=== PATIENT | male | born 1985 | race American Indian/Alaskan Native ===

== ENCOUNTER 2017-07-03 16:25 | Inpatient (IN) | payer MEDICAID, OTHER ==
[2017-07-03] MEDS ORDERED: Acetaminophen 325 MG Tab PO PRN (19:18)
[2017-07-03] MEDS ORDERED: Ondansetron 4 MG Tab.DIS PO PRN (19:18)
[2017-07-03] MEDS ORDERED: Ibuprofen 400 MG Tab PO PRN (19:18)
[2017-07-03] MEDS ORDERED: Zolpidem 5 MG Tab PO PRN (19:18)
--- NOTE | 2017-07-03 19:26 | PCM.HP ---
H&P History of Present Illness - General Date of Service: 07/03/17 Admit Problem/Dx: Admission Diagnosis/Problem Admission Diagnosis/Problem Cellulitis Source of Information: Patient - History of Present Illness Initial Comments - Free Text/Narative: 32-year-old generally healthy gentleman. Developed a small scab on the right knee area after falling about 2 weeks ago. 2 days prior to admission patient developed redness that was enlarging. Was not associated fever or chills but was moderately tender. [facility] clinic where he was diagnosed with cellulitis and was recommended for hospital admission for IV antibiotics. - Related Data Allergies/Adverse Reactions: Allergies Allergy/AdvReac Type Severity Reaction Status Date / Time No Known Allergies Allergy Verified 07/03/17 19:14 Home Medications: Home Meds . [No Known Home Meds] 07/03/17 [History] Past Medical History - Past Health History Medical/Surgical History: Denies Medical/Surgical History Social & Family History - Tobacco Use Smoking Status *Q: Current Every Day Smoker Years of Tobacco use: 11 - Alcohol Use Days Per Week of Alcohol Use: 7 Number of Drinks Per Day: 4 Total Drinks Per Week: 28 - Recreational Drug Use Recreational Drug Use: No H&P Review of Systems - Review of Systems: Review Of Systems: See Below General: Denies: Fever Pulmonary: Denies: Shortness of Breath Cardiovascular: Denies: Chest Pain Gastrointestinal: Denies: Abdominal Pain Genitourinary: Denies: Dysuria Skin: Reports: Erythema (Right lower extremity) Psychiatric: Denies: Confusion Exam - Exam Exam: See Below - Vital Signs Vital Signs: Last Vital Signs Temp 36.9 C 07/03/17 18:40 Pulse 97 07/03/17 18:40 Resp 18 07/03/17 18:40 BP 136/82 07/03/17 18:40 Pulse Ox 97 07/03/17 18:40 - Exam General: Alert, Oriented Neck: Supple Lungs: Clear to Auscultation, Normal Respiratory Effort Cardiovascular: Regular Rate, Regular Rhythm GI/Abdominal Exam: Normal Bowel Sounds, Soft, Non-Tender Skin: Warm, Other (Right lower extremity with erythema, small scabbed wound anterior to the knee) Neuro Extensive - Mental Status: Alert, Oriented x3 Psychiatric: Alert, Normal Affect, Normal Mood *Q Meaningful Use (ADM) - VTE *Q VTE Criteria *Q: - Stroke *Q Stroke Criteria *Q: - AMI *Q AMI Criteria *Q: - Problem List (1) Cellulitis of right foot SNOMED Code(s): 766626473 ICD Code: L03.115 - CELLULITIS OF RIGHT LOWER LIMB Status: Acute Current Visit: Yes Problem List Initiated/Reviewed/Updated: Yes Orders Last 24hrs: Active Orders 24 hr Category Date Time Status Patient Status [ADT] Routine ADT 07/03/17 19:18 Ordered Antiembolic Devices [RC] PER UNIT ROUTINE Care 07/03/17 19:19 Ordered Oxygen Therapy [RC] PRN Care 07/03/17 19:18 Ordered Peripheral IV Care [RC] . DIRECTED Care 07/03/17 19:19 Ordered Up With Assistance [RC] ASDIRECTED Care 07/03/17 19:18 Ordered VTE/DVT Education [RC] PER UNIT ROUTINE Care 07/03/17 19:18 Ordered Vital Signs [RC] Q4H Care 07/03/17 19:18 Ordered Regular Diet [DIET] Diet 07/03/17 Breakfast Ordered BASIC METABOLIC PANEL,BMP [CHEM] AM Lab 07/04/17 05:15 Ordered BASIC METABOLIC PANEL,BMP [CHEM] Routine Lab 07/03/17 19:11 Ordered CBC WITH AUTO DIFF [HEME] AM Lab 07/04/17 05:15 Ordered CBC WITH AUTO DIFF [HEME] Routine Lab 07/03/17 19:11 Ordered CULTURE BLOOD [BC] Stat Lab 07/03/17 19:12 Ordered CULTURE BLOOD [BC] Stat Lab 07/03/17 19:12 Ordered Acetaminophen [Tylenol] Med 07/03/17 19:18 Ordered 650 mg PO Q4H PRN Heparin Sodium Med 07/03/17 22:00 Ordered 5,000 units SUBCUT Q8HR Ibuprofen [Motrin] Med 07/03/17 19:18 Ordered 400 mg PO Q6H PRN Ibuprofen [Motrin] Med 07/03/17 19:18 Ordered 600 mg PO Q6H PRN Ondansetron [Zofran ODT] Med 07/03/17 19:18 Ordered 4 mg PO Q6H PRN Piperacillin/Tazobactam [Zosyn] 3.375 gm Med 07/03/17 19:30 Ordered Sodium Chloride 0.9% [Normal Saline] 100 ml IV Q6H Sodium Chloride 0.9% [Saline Flush] Med 07/03/17 19:18 Ordered 10 ml FLUSH ASDIRECTED PRN Vancomycin Pharmacy to Dose [Pharmacy to Dose - Med 07/03/17 19:30 Ordered Vancomycin] 1 dose .XX ASDIRECTED Zolpidem [Ambien] Med 07/03/17 19:18 Ordered 5 mg PO BEDTIME PRN Antiembolic Hose [OM.PC] Per Unit Routine Oth 07/03/17 19:19 Ordered Blood Culture x2 Reflex Set [OM.PC] Stat Oth 07/03/17 19:12 Ordered Peripheral IV Insertion Adult [OM.PC] Routine Oth 07/03/17 19:18 Ordered Resuscitation Status Routine Resus Stat 07/03/17 19:18 Ordered Medication Orders Piperacillin Sod/Tazobactam (Sod 3.375 gm/ Sodium Chloride) 100 mls @ 200 mls/ hr IV Q6H [facility] Vancomycin HCl (Pharmacy To Dose - Vancomycin) 1 dose .XX ASDIRECTED [facility] Assessment/Plan Comment:: #1 right foot cellulitis Will obtain blood culture Obtain CBC and basic metabolic panel Start empirically to treat with Zosyn and vancomycin The patient is from an area where MRSA is endemic #2 DVT prophylaxis will be subcutaneous heparin
[2017-07-03] MEDS: Piperacillin/Tazobactam 3.375 GM in Sodium Chloride 0.9% 100 ML IV SCH (20:22)
[2017-07-03 20:29] LABS: CHLORIDE,CL 101 mmol/L (101-111); SODIUM,NA 135 mmol/L (135-145)
[2017-07-03] MEDS ORDERED: Nicotine 7 MG/24 Hr Patch TRDERM SCH (21:00)
[2017-07-03] MEDS: Heparin Sodium 5,000 Units/ML Vial SUBCUT SCH (22:09)
[2017-07-04] MEDS: Piperacillin/Tazobactam 3.375 GM in Sodium Chloride 0.9% 100 ML IV SCH ×4 (01:56→20:20)
[2017-07-04] MEDS: Heparin Sodium 5,000 Units/ML Vial SUBCUT SCH ×3 (05:51→22:13)
[2017-07-04 06:56] LABS: CHLORIDE,CL 102 mmol/L (101-111); SODIUM,NA 136 mmol/L (135-145)
[2017-07-04] MEDS: Ibuprofen 600 MG Tab PO PRN ×2 (09:45→22:12)
--- NOTE | 2017-07-04 10:51 | PCM.PN ---
- General Info Date of Service: 07/04/17 Admission Dx/Problem (Free Text): Admission Diagnosis/Problem Admission Diagnosis/Problem Cellulitis Subjective Update: Feeling well. No fever or chills during the night. The redness did expand somewhat. No shortness of breath, chest pain Functional Status: Reports: Pain Controlled - Review of Systems General: Denies: Fever Pulmonary: Denies: Shortness of Breath Cardiovascular: Denies: Chest Pain Gastrointestinal: Denies: Abdominal Pain, Diarrhea - Patient Data Vitals - Most Recent: Last Vital Signs Temp 37.3 C 07/04/17 07:00 Pulse 84 07/04/17 07:00 Resp 18 07/04/17 07:00 BP 105/64 07/04/17 07:00 Pulse Ox 97 07/04/17 07:00 Weight - Most Recent: 88.904 kg I&O - Last 24 Hours: Intake & Output 07/03/17 07/04/17 07/04/17 22:59 06:59 14:59 Intake Total 1156 360 Balance 1156 360 Lab Results Last 24 Hours: Laboratory Results - last 24 hr 07/03/17 07/03/17 07/04/17 Range/Units 19:45 19:45 06:05 WBC 12.0 H 9.2 (5.0-10.0) 10^3/uL RBC 4.79 4.48 L (4.6-6.2) 10^6/uL Hgb 14.8 13.8 L (14.0-18.0) g/dL Hct 42.5 40.3 (40.0-54.0) % MCV 88.7 90.0 (80-100) fL MCH 30.9 30.8 (27.0-34.0) pg MCHC 34.8 34.2 (33.0-35.0) g/dL Plt Count 260 237 (150-450) 10^3/uL Neut % (Auto) 75.1 73.1 (42.2-75.2) % Lymph % (Auto) 12.7 L 12.1 L (20.5-50.1) % [place] % (Auto) 8.5 H 9.6 H (2-8) % Eos % (Auto) 3.6 H 5.0 H (1.0-3.0) % Baso % (Auto) 0.1 0.2 (0.0-1.0) % Sodium 135 (135-145) mmol/L Potassium 4.2 (3.6-5.0) mmol/L Chloride 101 (101-111) mmol/L Carbon Dioxide 25.0 (21.0-31.0) mmol/L Anion Gap 13.2 BUN 8 (7-18) mg/dL Creatinine 0.7 (0.6-1.3) mg/dL Est Cr Clr Drug Dosing TNP Estimated GFR (MDRD) > 60 Glucose 89 (74-105) mg/dL Calcium 9.1 (8.4-10.2) mg/dl 07/04/17 Range/Units 06:05 WBC (5.0-10.0) 10^3/uL RBC (4.6-6.2) 10^6/uL Hgb (14.0-18.0) g/dL Hct (40.0-54.0) % MCV (80-100) fL MCH (27.0-34.0) pg MCHC (33.0-35.0) g/dL Plt Count (150-450) 10^3/uL Neut % (Auto) (42.2-75.2) % Lymph % (Auto) (20.5-50.1) % [place] % (Auto) (2-8) % Eos % (Auto) (1.0-3.0) % Baso % (Auto) (0.0-1.0) % Sodium 136 (135-145) mmol/L Potassium 4.0 (3.6-5.0) mmol/L Chloride 102 (101-111) mmol/L Carbon Dioxide 25.0 (21.0-31.0) mmol/L Anion Gap 13.0 BUN 8 (7-18) mg/dL Creatinine 0.8 (0.6-1.3) mg/dL Est Cr Clr Drug Dosing 128.25 Estimated GFR (MDRD) > 60 Glucose 92 (74-105) mg/dL Calcium 8.8 (8.4-10.2) mg/dl Med Orders - Current: Current Medications Acetaminophen (Tylenol) 650 mg PO Q4H PRN PRN Reason: Pain (Mild 1-3)/fever Heparin Sodium (Porcine) (Heparin Sodium) 5,000 units SUBCUT Q8HR [facility] Last Admin: 07/04/17 05:51 Dose: 5,000 units Vancomycin HCl 1.25 gm/ Sodium (Chloride) 250 mls @ 166.667 mls/hr IV Q8H [facility] Last Admin: 07/04/17 05:51 Dose: 166.667 mls/hr Piperacillin Sod/Tazobactam (Sod 3.375 gm/ Sodium Chloride) 100 mls @ 200 mls/ hr IV Q6H [facility] Last Admin: 07/04/17 08:44 Dose: 200 mls/hr Ibuprofen (Motrin) 600 mg PO Q6H PRN PRN Reason: Pain (severe 7-10) Last Admin: 07/04/17 09:45 Dose: 600 mg Ibuprofen (Motrin) 400 mg PO Q6H PRN PRN Reason: Pain (moderate 4-6) Miscellaneous Information (Remove Patch) 1 ea TRDERM BEDTIME [facility] Nicotine (Habitrol) 7 mg TRDERM BEDTIME [facility] Ondansetron HCl (Zofran Odt) 4 mg PO Q6H PRN PRN Reason: nausea, able to take PO Sodium Chloride (Saline Flush) 10 ml FLUSH ASDIRECTED PRN PRN Reason: Keep Vein Open Vancomycin HCl (Pharmacy To Dose - Vancomycin) 1 dose .XX ASDIRECTED [facility] Zolpidem Tartrate (Ambien) 5 mg PO BEDTIME PRN PRN Reason: Sleep Discontinued Medications Piperacillin Sod/Tazobactam (Sod 3.375 gm/ Sodium Chloride) 100 mls @ 200 mls/ hr IV Q6H [facility] Last Admin: 07/04/17 01:56 Dose: 200 mls/hr Miscellaneous Information (Remove Patch) 1 ea TRDERM DAILY [facility] Nicotine (Habitrol) 7 mg TRDERM DAILY [facility] Last Admin: 07/03/17 22:07 Dose: 7 mg - Exam General: Alert, Oriented Neck: Supple Lungs: Clear to Auscultation, Normal Respiratory Effort Cardiovascular: Regular Rate, Regular Rhythm Extremities: No Pedal Edema Skin: Other (Right lower extremity erythema has increased from the prior borders , no palpable abscess) - Problem List & Annotations (1) Cellulitis of right foot SNOMED Code(s): 220020361 Code(s): L03.115 - CELLULITIS OF RIGHT LOWER LIMB Status: Acute Current Visit: Yes - Problem List Review Problem List Initiated/Reviewed/Updated: Yes - My Orders Last 24 Hours: My Active Orders 07/03/17 19:12 Blood Culture x2 Reflex Set [OM.PC] Stat 07/03/17 19:18 Patient Status [ADT] Routine Oxygen Therapy [RC] .PRN Up With Assistance [RC] ASDIRECTED VTE/DVT Education [RC] PER UNIT ROUTINE Vital Signs [RC] 03,07,11,15,19,23 Acetaminophen [Tylenol] 650 mg PO Q4H PRN Ibuprofen [Motrin] 400 mg PO Q6H PRN Ibuprofen [Motrin] 600 mg PO Q6H PRN Ondansetron [Zofran ODT] 4 mg PO Q6H PRN Sodium Chloride 0.9% [Saline Flush] 10 ml FLUSH ASDIRECTED PRN Zolpidem [Ambien] 5 mg PO BEDTIME PRN Peripheral IV Insertion Adult [OM.PC] Routine Resuscitation Status Routine 07/03/17 19:19 Antiembolic Devices [RC] 08,20 Peripheral IV Care [RC] 08,20 Antiembolic Hose [OM.PC] Per Unit Routine 07/03/17 19:30 Vancomycin Pharmacy to Dose [Pharmacy to Dose - Vancomycin] 1 dose .XX ASDIRECTED 07/03/17 19:40 CULTURE BLOOD [BC] Stat 07/03/17 19:45 CULTURE BLOOD [BC] Stat 07/03/17 21:00 Vancomycin 1.25 gm Sodium Chloride 0.9% [Normal Saline] 250 ml IV Q8H 07/03/17 22:00 Heparin Sodium 5,000 units SUBCUT Q8HR 07/04/17 08:00 Piperacillin/Tazobactam [Zosyn] 3.375 gm Sodium Chloride 0.9% [Normal Saline] 100 ml IV Q6H 07/04/17 21:00 Nicotine [Habitrol] 7 mg TRDERM BEDTIME Remove Patch 1 ea TRDERM BEDTIME 07/05/17 05:15 BASIC METABOLIC PANEL,BMP [CHEM] AM CBC WITH AUTO DIFF [HEME] AM - Plan Plan:: #1 right foot cellulitis Size of the redness has increased somewhat but the right blood cell count is down. blood culture is pending empirically treat with Zosyn and vancomycin The patient is from an area where MRSA is endemic #2 DVT prophylaxis will be subcutaneous heparin
[2017-07-04] MEDS: Sodium Chloride 0.9% 10 ML Syringe FLUSH PRN ×4 (13:32→22:54)
[2017-07-04] MEDS ORDERED: Nicotine 7 MG/24 Hr Patch TRDERM SCH (21:00)
[2017-07-05] MEDS: Piperacillin/Tazobactam 3.375 GM in Sodium Chloride 0.9% 100 ML IV SCH ×4 (01:50→20:24)
[2017-07-05] MEDS: Sodium Chloride 0.9% 10 ML Syringe FLUSH PRN ×5 (01:51→12:21)
[2017-07-05 05:22] LABS: CHLORIDE,CL 105 mmol/L (101-111); SODIUM,NA 136 mmol/L (135-145)
[2017-07-05] MEDS: Heparin Sodium 5,000 Units/ML Vial SUBCUT SCH ×3 (05:45→22:39)
[2017-07-05] MEDS: Nicotine 14 MG/24 Hr Patch TRDERM SCH (10:52)
--- NOTE | 2017-07-05 11:13 | PCM.PN ---
- General Info Date of Service: 07/05/17 Admission Dx/Problem (Free Text): Admission Diagnosis/Problem Admission Diagnosis/Problem Cellulitis Subjective Update: Feeling well. No fever or chills during the night. The redness improved. There is still moderate associated swelling. No shortness of breath, chest pain - Review of Systems General: Denies: Fever Pulmonary: Denies: Shortness of Breath Cardiovascular: Denies: Chest Pain Gastrointestinal: Reports: Diarrhea. Denies: Abdominal Pain Genitourinary: Denies: Dysuria - Patient Data Vitals - Most Recent: Last Vital Signs Temp 36.8 C 07/05/17 07:00 Pulse 71 07/05/17 07:00 Resp 18 07/05/17 07:00 BP 87/39 L 07/05/17 07:00 Pulse Ox 98 07/05/17 07:00 Weight - Most Recent: 88.904 kg I&O - Last 24 Hours: Intake & Output 07/04/17 07/05/17 07/05/17 22:59 06:59 14:59 Intake Total 1540 457 365 Balance 1540 457 365 Lab Results Last 24 Hours: Laboratory Results - last 24 hr 07/05/17 07/05/17 07/05/17 Range/Units 04:25 04:25 04:25 WBC 6.9 (5.0-10.0) 10^3/uL RBC 4.24 L (4.6-6.2) 10^6/uL Hgb 13.2 L (14.0-18.0) g/dL Hct 38.3 L (40.0-54.0) % MCV 90.3 (80-100) fL MCH 31.1 (27.0-34.0) pg MCHC 34.5 (33.0-35.0) g/dL Plt Count 227 (150-450) 10^3/uL Neut % (Auto) 57.8 (42.2-75.2) % Lymph % (Auto) 18.9 L (20.5-50.1) % [place] % (Auto) 14.3 H (2-8) % Eos % (Auto) 8.4 H (1.0-3.0) % Baso % (Auto) 0.6 (0.0-1.0) % Sodium 136 (135-145) mmol/L Potassium 4.0 (3.6-5.0) mmol/L Chloride 105 (101-111) mmol/L Carbon Dioxide 23.0 (21.0-31.0) mmol/L Anion Gap 12.0 BUN 12 (7-18) mg/dL Creatinine 0.8 (0.6-1.3) mg/dL Est Cr Clr Drug Dosing 128.25 mL/min Estimated GFR (MDRD) > 60 Glucose 96 (74-105) mg/dL Calcium 8.5 (8.4-10.2) mg/dl Vancomycin Trough 21.9 H (10-15) ug/ml Jose Results Last 24 Hours: Microbiology 07/03/17 19:45 Aerobic Blood Culture - Preliminary Blood - Venous - Lab Draw NO GROWTH AFTER 1 DAY Anaerobic Blood Culture - Preliminary NO GROWTH AFTER 1 DAY 07/03/17 19:40 Aerobic Blood Culture - Preliminary Blood - Venous NO GROWTH AFTER 1 DAY Anaerobic Blood Culture - Preliminary NO GROWTH AFTER 1 DAY Med Orders - Current: Current Medications Acetaminophen (Tylenol) 650 mg PO Q4H PRN PRN Reason: Pain (Mild 1-3)/fever Heparin Sodium (Porcine) (Heparin Sodium) 5,000 units SUBCUT Q8HR [facility] Last Admin: 07/05/17 05:45 Dose: 5,000 units Piperacillin Sod/Tazobactam (Sod 3.375 gm/ Sodium Chloride) 100 mls @ 200 mls/ hr IV Q6H [facility] Last Infusion: 07/05/17 11:01 Dose: Infused Vancomycin HCl 1 gm/ Sodium (Chloride) 250 mls @ 166.667 mls/hr IV Q8H [facility] Last Admin: 07/05/17 05:41 Dose: 166.667 mls/hr Ibuprofen (Motrin) 600 mg PO Q6H PRN PRN Reason: Pain (severe 7-10) Last Admin: 07/04/17 22:12 Dose: 600 mg Ibuprofen (Motrin) 400 mg PO Q6H PRN PRN Reason: Pain (moderate 4-6) Miscellaneous Information (Remove Patch) 1 ea TRDERM BEDTIME [facility] Last Admin: 07/04/17 20:23 Dose: 1 ea Nicotine (Habitrol) 14 mg TRDERM DAILY [facility] Last Admin: 07/05/17 10:52 Dose: 14 mg Ondansetron HCl (Zofran Odt) 4 mg PO Q6H PRN PRN Reason: nausea, able to take PO Sodium Chloride (Saline Flush) 10 ml FLUSH ASDIRECTED PRN PRN Reason: Keep Vein Open Last Admin: 07/05/17 07:25 Dose: 10 ml Vancomycin HCl (Pharmacy To Dose - Vancomycin) 1 dose .XX ASDIRECTED [facility] Zolpidem Tartrate (Ambien) 5 mg PO BEDTIME PRN PRN Reason: Sleep Discontinued Medications Piperacillin Sod/Tazobactam (Sod 3.375 gm/ Sodium Chloride) 100 mls @ 200 mls/ hr IV Q6H [facility] Last Admin: 07/04/17 01:56 Dose: 200 mls/hr Vancomycin HCl 1.25 gm/ Sodium (Chloride) 250 mls @ 166.667 mls/hr IV Q8H [facility] Last Admin: 07/05/17 06:23 Dose: Not Given Miscellaneous Information (Remove Patch) 1 ea TRDERM DAILY [facility] Nicotine (Habitrol) 7 mg TRDERM DAILY [facility] Last Admin: 07/03/17 22:07 Dose: 7 mg Nicotine (Habitrol) 7 mg TRDERM BEDTIME [facility] Last Admin: 07/04/17 20:24 Dose: 7 mg - Exam General: Alert, Oriented Neck: Supple Lungs: Clear to Auscultation, Normal Respiratory Effort Cardiovascular: Regular Rate, Regular Rhythm GI/Abdominal Exam: Normal Bowel Sounds, Soft, Non-Tender Extremities: Pedal Edema (Right lower extremity) Skin: Warm, Dry, Other (Right lower extremity erythema has much improved) - Problem List & Annotations (1) Cellulitis of right foot SNOMED Code(s): 532332592 Code(s): L03.115 - CELLULITIS OF RIGHT LOWER LIMB Status: Acute Current Visit: Yes - Problem List Review Problem List Initiated/Reviewed/Updated: Yes - My Orders Last 24 Hours: My Active Orders 07/04/17 21:00 Remove Patch 1 ea TRDERM BEDTIME 07/05/17 05:00 Vancomycin [Vancocin] 1 gm Sodium Chloride 0.9% [Normal Saline] 250 ml IV Q8H 07/05/17 09:00 Nicotine [Habitrol] 14 mg TRDERM DAILY 07/06/17 12:30 VANCOMYCIN TROUGH [CHEM] Timed - Plan Plan:: #1 right foot cellulitis the redness has much improved the right blood cell count is down. blood culture is pending empirically treat with Zosyn and vancomycin The patient is from an area where MRSA is endemic Follow for diarrhea This probably too early for C. difficile #2 DVT prophylaxis will be subcutaneous heparin
[2017-07-06] MEDS: Piperacillin/Tazobactam 3.375 GM in Sodium Chloride 0.9% 100 ML IV SCH ×2 (02:38→07:39)
[2017-07-06] MEDS: Heparin Sodium 5,000 Units/ML Vial SUBCUT SCH (05:51)
--- NOTE | 2017-07-06 09:55 | PCM.DCSUM1 ---
Discharge Summary - Hospital Course Free Text/Narrative:: The patient is a 32-year-old gentleman who presented with right lower extremity redness. He was admitted and treated for cellulitis with vancomycin and Zosyn. The patient's initially elevated leukocytosis has resolved. The redness and swelling has much improved. He will be discharged in a stable condition with continuation of antibiotics with an oral regimen - Discharge Data Discharge Date: 07/06/17 Discharge Disposition: Home, Self-Care 01 Condition: Fair - Discharge Diagnosis/Problem(s) (1) Cellulitis of right foot SNOMED Code(s): 359871644 ICD Code: L03.115 - CELLULITIS OF RIGHT LOWER LIMB Status: Acute Current Visit: Yes - Patient Instructions Diet: Usual Diet as Tolerated Activity: As Tolerated - Discharge Plan Prescriptions/Med Rec: Ibuprofen [IJD: Ibuprofen] 600 mg PO Q6H PRN #30 tablet PRN Reason: Pain Sulfamethoxazole/Trimethoprim [Bactrim Ds Tablet] 1 each PO BID #20 tablet Home Medications: Home Meds Ibuprofen [IJD: Ibuprofen] 600 mg PO Q6H PRN #30 tablet 07/06/17 [Rx] Sulfamethoxazole/Trimethoprim [Bactrim Ds Tablet] 1 each PO BID #20 tablet 07/06 [Rx] Patient Handouts: Cellulitis, Adult, [id number] Referrals: PCP,None [Primary Care Provider] - (in 3-4 days) - General Info Date of Service: 07/06/17 Admission Dx/Problem (Free Text: Admission Diagnosis/Problem Admission Diagnosis/Problem Cellulitis Subjective Update: Feeling well. No fever or chills. The redness almost completely resolved. No shortness of breath, chest pain - Review of Systems General: Denies: Fever, Weakness Pulmonary: Denies: Shortness of Breath Cardiovascular: Denies: Chest Pain Gastrointestinal: Denies: Abdominal Pain - Patient Data Vitals - Most Recent: Last Vital Signs Temp 36.4 C 07/06/17 07:52 Pulse 74 07/06/17 07:52 Resp 20 07/06/17 07:52 BP 90/44 L 07/06/17 07:52 Pulse Ox 100 07/06/17 07:52 Weight - Most Recent: 73.301 kg I&O - Last 24 hours: Intake & Output 07/05/17 07/06/17 07/06/17 22:59 06:59 14:59 Intake Total 1458 904 96 Balance 1458 904 96 QUYNH Results - Last 24 hrs: Microbiology 07/03/17 19:45 Aerobic Blood Culture - Preliminary Blood - Venous - Lab Draw NO GROWTH AFTER 2 DAYS Anaerobic Blood Culture - Preliminary NO GROWTH AFTER 2 DAYS 07/03/17 19:40 Aerobic Blood Culture - Preliminary Blood - Venous NO GROWTH AFTER 2 DAYS Anaerobic Blood Culture - Preliminary NO GROWTH AFTER 2 DAYS Med Orders - Current: Current Medications Acetaminophen (Tylenol) 650 mg PO Q4H PRN PRN Reason: Pain (Mild 1-3)/fever Heparin Sodium (Porcine) (Heparin Sodium) 5,000 units SUBCUT Q8HR [facility] Last Admin: 07/06/17 05:51 Dose: 5,000 units Piperacillin Sod/Tazobactam (Sod 3.375 gm/ Sodium Chloride) 100 mls @ 200 mls/ hr IV Q6H [facility] Last Infusion: 07/06/17 08:20 Dose: Infused Vancomycin HCl 1 gm/ Sodium (Chloride) 250 mls @ 166.667 mls/hr IV Q8H [facility] Last Admin: 07/06/17 05:51 Dose: 166.667 mls/hr Ibuprofen (Motrin) 600 mg PO Q6H PRN PRN Reason: Pain (severe 7-10) Last Admin: 07/04/17 22:12 Dose: 600 mg Ibuprofen (Motrin) 400 mg PO Q6H PRN PRN Reason: Pain (moderate 4-6) Miscellaneous Information (Remove Patch) 1 ea TRDERM DAILY [facility] Nicotine (Habitrol) 14 mg TRDERM DAILY [facility] Last Admin: 07/05/17 10:52 Dose: 14 mg Ondansetron HCl (Zofran Odt) 4 mg PO Q6H PRN PRN Reason: nausea, able to take PO Sodium Chloride (Saline Flush) 10 ml FLUSH ASDIRECTED PRN PRN Reason: Keep Vein Open Last Admin: 07/05/17 12:21 Dose: 10 ml Vancomycin HCl (Pharmacy To Dose - Vancomycin) 1 dose .XX ASDIRECTED [facility] Zolpidem Tartrate (Ambien) 5 mg PO BEDTIME PRN PRN Reason: Sleep Discontinued Medications Piperacillin Sod/Tazobactam (Sod 3.375 gm/ Sodium Chloride) 100 mls @ 200 mls/ hr IV Q6H [facility] Last Admin: 07/04/17 01:56 Dose: 200 mls/hr Vancomycin HCl 1.25 gm/ Sodium (Chloride) 250 mls @ 166.667 mls/hr IV Q8H [facility] Last Admin: 07/05/17 06:23 Dose: Not Given Miscellaneous Information (Remove Patch) 1 ea TRDERM DAILY [facility] Miscellaneous Information (Remove Patch) 1 ea TRDERM BEDTIME [facility] Last Admin: 07/04/17 20:23 Dose: 1 ea Nicotine (Habitrol) 7 mg TRDERM DAILY [facility] Last Admin: 07/03/17 22:07 Dose: 7 mg Nicotine (Habitrol) 7 mg TRDERM BEDTIME [facility] Last Admin: 07/04/17 20:24 Dose: 7 mg - Exam General: Reports: Alert, Oriented Neck: Reports: Supple Lungs: Reports: Normal Respiratory Effort Extremities: No Pedal Edema Skin: Reports: Other (Erythema has resolved) *Q Meaningful Use (DIS) - VTE *Q VTE Criteria *Q: - Stroke *Q Stroke Criteria *Q: - AMI *Q AMI Criteria *Q:
[2017-07-06] MEDS: Nicotine 14 MG/24 Hr Patch TRDERM SCH (10:27)
== END 2017-07-06 11:35 | disposition home or self-care (01) | DRG 603 ==
LOC: DL.ED 16:25 → DL.MS 18:58 → DL.ED 19:08 → DL.MS 19:09
PROVIDERS: ADMIT Internal Medicine; ATTEND Internal Medicine
DX: L03.115 Cellulitis of right lower limb (principal); F17.210 Nicotine dependence, cigarettes, uncomplicated
CPT/HCPCS: 36415; 80048; 80202; 85025; 87040; 99284; A9270-GY; J1644; J2543; J3370; J7050

== ENCOUNTER 2018-02-05 16:57 | Emergency (ER) | payer MEDICAID, OTHER ==
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
[2018-02-05] MEDS ORDERED: Ibuprofen Susp 100 MG/5 ML 5 ML UD Cup PO ONE (18:44)
[2018-02-05] MEDS ORDERED: Ibuprofen 800 MG Tab PO ONE (18:48)
== END 2018-02-05 18:45 | disposition home or self-care (01) ==
LOC: DL.ED 16:57
DX: S82.831A Other fracture of upper and lower end of right fibula, initial encounter for closed fracture (principal); F17.210 Nicotine dependence, cigarettes, uncomplicated; W19.XXXA Unspecified fall, initial encounter
CPT/HCPCS: 29515; 73610-RT; 99283

== ENCOUNTER 2020-09-23 12:51 | Emergency (ER) | payer MEDICAID, OTHER ==
[2020-09-23] MEDS ORDERED: Diphtheria,Pertussis(Acell),Tetanus Vaccine 0.5 ML Syringe IM ONE (13:41)
[2020-09-23] MEDS ORDERED: Bacitracin Oint 1 GM U/D Packet TOP ONE (13:41)
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
== END 2020-09-23 14:17 | disposition home or self-care (01) ==
LOC: DL.ED 12:51
DX: T23.142A Burn of first degree of multiple left fingers (nail), including thumb, initial encounter (principal); S00.03XA Contusion of scalp, initial encounter; T59.811A Toxic effect of smoke, accidental (unintentional), initial encounter; Z23 Encounter for immunization
CPT/HCPCS: 16000; 71046; 82375; 90471; 90715; 99283-25; 99284

== ENCOUNTER 2020-09-26 11:04 | Emergency (ER) | payer MEDICAID ==
--- NOTE | 2020-09-26 11:14 | EDM.PDOC ---
ED HPI GENERAL MEDICAL PROBLEM - General Chief Complaint: ENT Problem Stated Complaint: QTIP STUCK IN EAR Time Seen by Provider: 09/26/20 11:08 Source of Information: Reports: Patient, RN, RN Notes Reviewed History Limitations: Reports: No Limitations - History of Present Illness INITIAL COMMENTS - FREE TEXT/NARRATIVE: Pt presents to ER with c/o cotton end of a Q-tip stuck in his right ear canal and he cannot get it out. It got stuck in there earlier this morning. Denies pain. Denies any other complaint. Onset: Today Duration: Constant Location: Reports: Other (Rt ear) Quality: Reports: Other (Denies pain) Severity: Mild Improves with: Reports: None Worsens with: Reports: None Associated Symptoms: Reports: No Other Symptoms - Related Data Allergies Allergy/AdvReac Type Severity Reaction Status Date / Time No Known Allergies Allergy Verified 02/05/18 17:04 Home Meds: Home Meds Ibuprofen [IJD: Ibuprofen] 600 mg PO Q6H PRN #30 tablet 07/06/17 [Rx] Past Medical History - Past Health History Medical/Surgical History: Denies Medical/Surgical History - Past Surgical History Dermatological Surgical History: Reports: None Social & Family History - Family History Family Medical History: No Pertinent Family History - Caffeine Use Caffeine Use: Reports: Coffee, Energy Drinks, Soda - Living Situation & Occupation Living situation: Reports: with Family ED ROS ENT - Review of Systems Review Of Systems: Comprehensive ROS is negative, except as noted in HPI. ED EXAM, ENT - Physical Exam Exam: See Below Exam Limited By: No Limitations General Appearance: Alert, WD/WN, No Apparent Distress Ears: Hearing Grossly Normal, Canal Foreign Body (Right, white cotton). No: Mastoid Tenderness, Canal Swelling, TM Bulging, TM Dullness, TM Erythema, TM Blood, TM Fluid, TM Perforation, TM Vesicles Nose: Normal Inspection Mouth/Throat: Normal Inspection Neurological: Alert, Oriented Psychiatric: Normal Mood Skin: Warm, Dry, Normal Color, No Rash Departure - Departure Time of Disposition: 11:13 Disposition: Home, Self-Care 01 Condition: Good Clinical Impression: Foreign body in ear Qualifiers: Encounter type: initial encounter Laterality: right Qualified Code(s): T16.1XXA - Foreign body in right ear, initial encounter - Discharge Information *PRESCRIPTION DRUG MONITORING PROGRAM REVIEWED*: Not Applicable *COPY OF PRESCRIPTION DRUG MONITORING REPORT IN PATIENT AMY: Not Applicable Instructions: Ear Foreign Body, [id number] Forms: ED Department Discharge Additional Instructions: Follow up in clinic if any further concerns.
== END 2020-09-26 11:17 | disposition home or self-care (01) ==
LOC: DL.ED 11:04
DX: T16.1XXA Foreign body in right ear, initial encounter (principal); Z79.899 Other long term (current) drug therapy
CPT/HCPCS: 69200; 99282

== ENCOUNTER 2021-11-15 18:55 | Emergency (ER) | payer MEDICAID ==
[2021-11-15] MEDS ORDERED: Sodium Chloride 0.9% 10 ML Syringe FLUSH PRN (19:11)
[2021-11-15] MEDS ORDERED: MVI, Adult with Vitamin K 10 ML, Folic Acid 1 MG, Thiamine 100 MG in Lactated Ringers 1... IV ONE ×4 (19:11)
[2021-11-15 19:31] LABS: ANION GAP 15.8 mEq/L (7-13); CHLORIDE,CL 104 mmol/L (98-107); SODIUM,NA 142 mmol/L (136-145)
== END 2021-11-15 21:02 | disposition home or self-care (01) ==
LOC: DL.ED 18:55
DX: S01.01XA Laceration without foreign body of scalp, initial encounter (principal); S30.0XXA Contusion of lower back and pelvis, initial encounter; S20.221A Contusion of right back wall of thorax, initial encounter; Y04.0XXA Assault by unarmed brawl or fight, initial encounter
CPT/HCPCS: 12002; 36415; 70450; 72125; 80053; 80307; 85025; 96365; 99284; J3411; J3490; J7120

== ENCOUNTER 2022-05-17 21:06 | Emergency (ER) | payer MEDICAID ==
[2022-05-17 21:55] LABS: ANION GAP 14.8 mEq/L (7-13)
[2022-05-17] MEDS ORDERED: MVI, Adult with Vitamin K 10 ML, Thiamine 100 MG, Folic Acid 1 MG in Lactated Ringers 1... IV ONE ×4 (21:58)
[2022-05-17] MEDS ORDERED: Sodium Chloride 0.9% 1,000 ML IV ONE (22:58)
[2022-05-17 23:12] LABS: AMPHETAMINES,URINE NEGATIVE (NEGATIVE); BARBITURATES,URINE NEGATIVE (NEGATIVE); BENZODIAZEPINE,URINE NEGATIVE (NEGATIVE); MDMA (ECSTASY), URINE NEGATIVE (NEGATIVE); METHADONE,URINE NEGATIVE (NEGATIVE); METHAMPHETAMINES,URINE NEGATIVE (NEGATIVE); OPIATES,URINE NEGATIVE (NEGATIVE); OXYCODONE,URINE NEGATIVE (NEGATIVE); PHENCYCLIDINE,URINE NEGATIVE (NEGATIVE); TCA,URINE NEGATIVE (NEGATIVE)
[2022-05-18] MEDS ORDERED: Lactated Ringers 1,000 ML IV ONE (03:07)
== END 2022-05-18 08:33 | disposition other institution (70) ==
LOC: DL.ED 21:06
DX: F10.920 Alcohol use, unspecified with intoxication, uncomplicated (principal); R74.8 Abnormal levels of other serum enzymes; Y90.8 Blood alcohol level of 240 mg/100 ml or more
CPT/HCPCS: 36415; 80053; 80305-QW; 80307; 81003; 83735; 85025; 96361; 96365; 99284-25; J3411; J3490; J7030; J7120

== ENCOUNTER 2022-09-04 22:02 | Emergency (ER) | payer MEDICAID ==
[2022-09-04] MEDS ORDERED: Amoxicillin/Clavulanate K 875-125 MG Tab PO ONE (22:03)
[2022-09-04] MEDS ORDERED: Acetaminophen 500 MG Tab PO ONE (22:04)
== END 2022-09-04 22:37 | disposition home or self-care (01) ==
LOC: DL.ED 22:02
DX: S61.551A Open bite of right wrist, initial encounter (principal); R22.0 Localized swelling, mass and lump, head; M79.631 Pain in right forearm; Y04.1XXA Assault by human bite, initial encounter
CPT/HCPCS: 99283; 99284; A9270

== ENCOUNTER 2024-05-01 05:40 | Emergency (ER) | payer MEDICAID | END 2024-05-01 06:37 | disposition left against medical advice (07) | LOC: DL.ED 05:40 | DX: Z53.21 Procedure and treatment not carried out due to patient leaving prior to being seen by health care provider (principal) ==